=== PATIENT | female | born 1990 | race Caucasian/White ===

== ENCOUNTER 2016-12-27 17:09 | Emergency (ER) | payer OTHER ==
[~2016-12-27] VITALS: Ht 149.9 cm; Wt 44.0 kg
[2016-12-27 18:00] LABS: HEMATOCRIT 36.8 % (36.0-46.0); MCH 28.1 PG (29.0-34.0); MCHC 35.1 G/DL (30.0-36.0); MCV 80.2 FL (83-99); MEAN PLAT.VOLUME 9.1 uM^3 (9.5-12.4); PLATELET COUNT 309 K/uL (156-360); RBC DIS.WIDTH-CV 12.1 % (11.8-14.6); RBC DIS.WIDTH-SD 34.7 % (39-53); RED BLOOD COUNT 4.59 M/uL (3.80-5.20); WHITE BLOOD COUNT 7.4 K/uL (4.1-10.2)
[2016-12-27 18:06] LABS: ADD MIUA? NO; BILIRUBIN NEGATIVE; BLOOD NEGATIVE; COLOR YELLOW ((YELLOW)); GLUCOSE (STRIP) NEGATIVE; KETONES NEGATIVE; LEUKOCYTES NEGATIVE; NITRITE NEGATIVE; PROTEIN (STRIP) NEGATIVE; SPECIFIC GRAVITY 1.014 (1.000-1.030); UCUL ADDED? NO; UROBILINOGEN 0.2 MG/DL (0.2-1.0)
[2016-12-27 18:17] LABS: CHLORIDE 107 mEq/L (99-109); SODIUM 141 mEq/L (136-147)
[2016-12-27 18:19] LABS: GLUCOSE 123 mg/dL (70-99)
[2016-12-27 18:21] LABS: ANION GAP 14 MEQ/L (2-14)
[2016-12-27 18:22] LABS: TROP-I INTERPRETATION NEGATIVE; TROPONIN-I < 0.01 ng/mL (0.0-0.30)
[2016-12-27 18:24] LABS: GFR ESTIMATE (CALCULATED) > 59 mL/min/; UREA NITROGEN (BUN) 15 mg/dL (9-23)
[2016-12-27 19:33] LABS: D-DIMER ELISA < 0.15 mg/L FEU (< 0.57)
[2016-12-27] MEDS ORDERED: MELOXICAM15 MG PO (20:06)
[2016-12-27] MEDS ORDERED: OMEPRAZOLE20 M2 PO (20:06)
[2016-12-27] MEDS ORDERED: PROAIR HFA8.5 GM IH (20:07)
[2016-12-27 20:17] VITALS: BP 111/65
== END 2016-12-27 20:18 | disposition home or self-care (01) ==
LOC: EME 17:09
DX: R07.9 Chest pain, unspecified (principal)
CPT/HCPCS: 71020; 80048; 81003; 84484; 85027; 85379; 93005; 99281; 99283